=== PATIENT | male | born 1995 | race Caucasian/White ===

== ENCOUNTER 2019-09-23 19:31 | Emergency (ER) | payer BC ==
--- NOTE | 2019-09-23 21:01 | EDM.PDOC ---
ED HPI GENERAL MEDICAL PROBLEM - General Chief Complaint: Upper Extremity Injury/Pain Stated Complaint: LEFT SHOULDER PAIN Time Seen by Provider: 09/23/19 20:28 Source of Information: Reports: Patient, RN Notes Reviewed History Limitations: Reports: No Limitations - History of Present Illness INITIAL COMMENTS - FREE TEXT/NARRATIVE: Patient is a 24-year-old male who presents to the ED for evaluation of left shoulder pain. The patient notes this pain has been present for around one week now, he does not recall any specific accident or injury that happened. 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 The patient denies any numbness or tingling distal to the shoulder, denies any neck pain that he's been having. He notes the pain to be sharp in nature, and also dull and achy at times. He states that this comes and goes. The pain worsens when he abducts his arm away from his body, and the pain gets better with rest. He did take Motrin 2 days ago, but has not been taking much for pain meds for this. Patient notes that the pain feels worse if he lifts his arm above shoulder height, and that he is having difficulties carrying his baby's car seat due to increased pain in his left shoulder. Left Shoulder Pain Score (Numeric/FACES): 8 - Related Data Allergies Allergy/AdvReac Type Severity Reaction Status Date / Time No Known Allergies Allergy Verified 09/23/19 19:55 Home Meds: Home Meds . [No Known Home Meds] 09/23/19 [History] Past Medical History - Past Surgical History HEENT Surgical History: Reports: Oral Surgery GI Surgical History: Reports: Hernia, Abdominal Other GI Surgeries/Procedures: done when young child Social & Family History - Tobacco Use Smoking Status *Q: Current Every Day Smoker Years of Tobacco use: 8 Packs/Tins Daily: 1 - Caffeine Use Caffeine Use: Reports: Coffee, Soda - Recreational Drug Use Recreational Drug Use: No Review of Systems - Review of Systems Review Of Systems: Comprehensive ROS is negative, except as noted in HPI. Musculoskeletal: Reports: Joint Pain (L shoulder pain). Denies: Neck Pain, Arm Pain, Joint Swelling Neurological: Denies: Numbness, Tingling ED EXAM, GENERAL - Physical Exam Exam: See Below Exam Limited By: No Limitations General Appearance: Alert, WD/WN, No Apparent Distress Neck: Normal Inspection Respiratory/Chest: No Respiratory Distress, Lungs Clear, Normal Breath Sounds, No Accessory Muscle Use, Chest Non-Tender Cardiovascular: Normal Peripheral Pulses, Regular Rate, Rhythm, No Murmur Peripheral Pulses: 3+: Radial (L), Radial (R) Extremities: Normal Inspection, Normal Capillary Refill, Limited Range of Motion (of L shoulder, he has about half range of motion in abduction, flexion and extension of the arm.), Other (Strength is within normal limits.) Neurological: Alert, Oriented, Normal Cognition, No Motor/Sensory Deficits Psychiatric: Normal Affect, Normal Mood Skin Exam: Warm, Dry, Intact, Normal Color, No Rash Course - Vital Signs Last Recorded V/S: Last Vital Signs Temp 98.9 F 09/23/19 19:59 Pulse 71 09/23/19 19:59 Resp 20 09/23/19 19:59 BP 123/80 09/23/19 19:59 Pulse Ox 98 09/23/19 19:59 - Orders/Labs/Meds Orders: Active Orders 24 hr Category Date Time Status Shoulder Comp Lt [CR] Stat Exams 09/23/19 20:30 Taken - Re-Assessments/Exams Free Text/Narrative Re-Assessment/Exam: 09/23/19 20:58 Patient presents to the ED for evaluation of left shoulder pain. I did order an x-ray for initial evaluation, and this does appear to be within normal limits no acute fractures or bony abnormalities appreciated by myself or Dr. Vasques. At this time after exam, I do believe that the patient has more of a soft tissue injury in nature, of which is unspecified at this time. We'll have him go home and try conservative management and have him follow up with a primary care provider if not much better in a week or 2. Departure - Departure Time of Disposition: 20:59 Disposition: Home, Self-Care 01 Condition: Fair Clinical Impression: Left shoulder pain Qualifiers: Chronicity: acute Qualified Code(s): M25.512 - Pain in left shoulder - Discharge Information *PRESCRIPTION DRUG MONITORING PROGRAM REVIEWED*: No *COPY OF PRESCRIPTION DRUG MONITORING REPORT IN PATIENT YAZMIN: No Instructions: Shoulder Pain, [id number] Referrals: PCP,None [Primary Care Provider] - Forms: ED Department Discharge Additional Instructions: You have been evaluated in the ED for your left shoulder pain. Your x-ray demonstrated no acute bony fracture or abnormality. Please use ice as tolerated to the affected area. Please try to elevate the affected area to relieve swelling. You may take Tylenol 500 mg or ibuprofen 600mg q6 hrs for pain relief. Please do so until you have a tolerable level of pain with activity. Do not exceed 4000mg Tylenol or 3200mg ibuprofen in a 24 hour time period. If your pain is not getting much better in a week or 2 time, sees seek care for further evaluation. You will need to establish care with a primary care provider, our [facility] clinic number is [phone], any family practice provider will be able to provide you with the services. Please return to ED if your symptoms should change or worsen. - My Orders Last 24 Hours: My Active Orders 09/23/19 20:30 Shoulder Comp Lt [CR] Stat - Assessment/Plan Last 24 Hours: My Active Orders 09/23/19 20:30 Shoulder Comp Lt [CR] Stat
--- NOTE | 2019-09-26 06:36 | CR ---
Left shoulder: Three views of the left shoulder were obtained. Comparison: No prior shoulder exam. Glenohumeral joint and acromioclavicular joint appear within normal limits. No fracture, dislocation or other bony abnormality is identified. Impression: 1. No abnormality is identified on left shoulder exam. Diagnostic code #1 This report was dictated in [place] Standard Time
== END 2019-09-23 21:16 | disposition home or self-care (01) ==
LOC: JD.ED 19:31
DX: M25.512 Pain in left shoulder (principal); F17.210 Nicotine dependence, cigarettes, uncomplicated
CPT/HCPCS: 73030-26-LT; 73030-LT; 99282; 99283-25